=== PATIENT | female | born 1980 | race Caucasian/White ===

== ENCOUNTER 2016-10-03 06:05 | Inpatient (IN) | payer OTHER ==
[~2016-10-03] VITALS: Ht 162.6 cm; Wt 78.0 kg
[~2016-10-03 06:05] MED LIST: DOCO200C3 PO; DOCU240C31 PO; IBUP-1222 PO; OXYC-302 PO
[2016-10-03] MEDS ORDERED: OXYTOCIN 30U/ 0.9% NaCL 500ML 500 ML IV ONE (06:25)
[2016-10-03] MEDS ORDERED: D5%-LACTATED RINGERS 1,000 ML IV SCH (06:25)
[2016-10-03] MEDS ORDERED: OXYTOCIN 30U/ 0.9% NaCL 500ML 500 ML IV PRN (06:25)
[2016-10-03] MEDS ORDERED: FENTANYL PF 100 MCG/2ML IV PRN (06:30)
[2016-10-03] MEDS ORDERED: FENTANYL PF 100 MCG/2ML IVPush PRN (06:30)
[2016-10-03] MEDS ORDERED: TERBUTALINE 1 MG/ML, 1ML IVPush PRN (06:30)
[2016-10-03] MEDS ORDERED: ONDANSETRON 2MG/ML, 2ML IVPush PRN (06:30)
[2016-10-03] MEDS ORDERED: CALCIUM CARBONATE 500 MG TAB.CHEW PO PRN (06:30)
[2016-10-03] MEDS: LACTATED RINGERS 1,000 ML IV SCH ×3 (06:35→13:47)
[2016-10-03] MEDS ORDERED: MISOPROSTOL 25 MCG TABLET ONE (07:47)
[2016-10-03] MEDS ORDERED: MISOPROSTOL 25 MCG TABLET VG PRN (08:00)
[2016-10-03] MEDS ORDERED: OXYTOCIN 30U/ 0.9% NaCL 500ML 500 ML ONE ×2 (12:16→19:01)
[2016-10-03] MEDS ORDERED: FENTANYL PF 100 MCG/2ML ONE (13:37)
[2016-10-03] MEDS ORDERED: BUPIVACAINE 0.25% ONE ×2 (13:38→14:00)
[2016-10-03] MEDS ORDERED: FENTANYL/BUPIV./NS/PF 250 ML EPIDCONT ONE ×2 (13:38→14:00)
[2016-10-03] MEDS ORDERED: LIDOCAINE/PF 1.5%-EPI 1:200K, 30ML ONE (14:00)
[2016-10-03] MEDS ORDERED: ACETAMINOPHEN 325 MG TABLET PO PRN (17:00)
[2016-10-03] MEDS ORDERED: DOCUSATE 100 MG CAPSULE PO PRN (17:00)
[2016-10-03] MEDS ORDERED: METOCLOPRAMIDE 5 MG/ML, 2ML IV PRN (17:00)
[2016-10-03] MEDS ORDERED: OXYcodone/APAP 5/325MG TABLET PO PRN ×2 (17:00)
[2016-10-03] MEDS ORDERED: ONDANSETRON 2MG/ML, 2ML IV PRN (17:00)
[2016-10-03] MEDS ORDERED: CARBOPROST TROMETHAMINE 250 MCG/ML, 1ML IM PRN (17:00)
[2016-10-03] MEDS ORDERED: METHYLERGONOVINE 0.2 MG/ML IM PRN (17:00)
[2016-10-03] MEDS ORDERED: MISOPROSTOL 200 MCG TABLET PR PRN (17:00)
[2016-10-03] MEDS ORDERED: FENTANYL/BUPIV./NS/PF 250 ML EPIDCONT SCH (17:36)
[2016-10-03] MEDS ORDERED: LACTATED RINGERS 1,000 ML IVBOLUS PRN (18:00)
[2016-10-03] MEDS ORDERED: IBUPROFEN 600 MG TABLET ONE (19:01)
[2016-10-03] MEDS: IBUPROFEN 600 MG TABLET PO PRN (19:15)
[2016-10-03] MEDS: OXYTOCIN 30U/ 0.9% NaCL 500ML 500 ML IV SCH (19:15)
[2016-10-03 20:00] VITALS: BP 111/72
[2016-10-03 21:00] VITALS: BP 116/64
[2016-10-04] VITALS: BP 104/62
[2016-10-04] MEDS: IBUPROFEN 600 MG TABLET PO PRN (00:34)
[2016-10-04] MEDS: OXYTOCIN 30U/ 0.9% NaCL 500ML 500 ML IV SCH ×2 (02:49→12:49)
[2016-10-04 03:45] VITALS: BP 111/64
[2016-10-04 07:33] VITALS: BP 115/72
[2016-10-04] MEDS ORDERED: PRENATAL VIT/IRON/FA 1 EACH TABLET ONE (07:52)
[2016-10-04] MEDS ORDERED: PRENATAL VIT/IRON/FA 1 EACH TABLET PO SCH (09:00)
[2016-10-04] MEDS ORDERED: DOCU-30 PO (11:00)
== END 2016-10-04 13:45 | disposition home or self-care (01) | DRG 775 ==
LOC: LDIP 06:05 → 2NW 19:50
PROVIDERS: ADMIT Obstetrics & Gynecology; ATTEND Obstetrics & Gynecology
PROC: 10E0XZZ Delivery of Products of Conception, External Approach (ICD-10-PCS; principal; 2016-10-03)
PROC: 0KQM0ZZ Repair Perineum Muscle, Open Approach (ICD-10-PCS; 2016-10-03)
PROC: 10907ZC Drainage of Amniotic Fluid, Therapeutic from Products of Conception, Via Natural or Artificial Opening (ICD-10-PCS; 2016-10-03)
PROC: 3E033VJ Introduction of Other Hormone into Peripheral Vein, Percutaneous Approach (ICD-10-PCS; 2016-10-03)
PROC: 00HU33Z Insertion of Infusion Device into Spinal Canal, Percutaneous Approach (ICD-10-PCS; 2016-10-03)
PROC: 3E0R3CZ (ICD-10-PCS; 2016-10-03)
DX: O24.420 Gestational diabetes mellitus in childbirth, diet controlled (principal); Z37.0 Single live birth; Z3A.39 39 weeks gestation of pregnancy; O70.1 Second degree perineal laceration during delivery
CPT/HCPCS: 36415; 82962; 85025; 86850; 86900; J3490; J2590; J3010; J7120